=== PATIENT | female | born 1950 | race Caucasian/White ===

== ENCOUNTER 2018-08-25 12:08 | Emergency (ER) | payer MEDICARE ==
[~2018-08-25] VITALS: Ht 157.5 cm; Wt 95.5 kg
[~2018-08-25 12:08] MED LIST: ASPI81TA52 PO; ATOR40TA PO; CHOL100046 PO; DOCU100C40 PO; ESCI10TA54 PO; ESTR2TAB PO; LEVO75TA PO; MEDR2.5T7 PO; METH5TAB2 PO; OMEG1CAP2 PO; PARO10TA85 PO; PER10325T PO
[2018-08-25 12:10] VITALS: BP 146/73
[2018-08-25] MEDS ORDERED: HYDR-3965 PO (13:05)
== END 2018-08-25 14:04 | disposition home or self-care (01) ==
LOC: ER 12:08
DX: S52.591A Other fractures of lower end of right radius, initial encounter for closed fracture (principal); I25.2 Old myocardial infarction; M19.90 Unspecified osteoarthritis, unspecified site; I50.9 Heart failure, unspecified; Z88.5 Allergy status to narcotic agent; Z79.82 Long term (current) use of aspirin; Z79.899 Other long term (current) drug therapy; Z90.49 Acquired absence of other specified parts of digestive tract; W01.0XXA Fall on same level from slipping, tripping and stumbling without subsequent striking against object, initial encounter; Y93.89 Activity, other specified; Y92.89 Other specified places as the place of occurrence of the external cause; Y99.8 Other external cause status
CPT/HCPCS: 29125; 73090; 73110; 99284

== ENCOUNTER → 2018-09-26 | Outpatient (CLI) | payer MEDICARE ==
[~2018-09-26] MED LIST changes: +HYDR-4353 PO
== END | disposition home or self-care (01) ==
LOC: ORTHO 15:51
PROVIDERS: ATTEND Orthopaedic Surgery
DX: S52.571D Other intraarticular fracture of lower end of right radius, subsequent encounter for closed fracture with routine healing (principal)
CPT/HCPCS: 73110; G0463

== ENCOUNTER 2018-10-24 15:39 | Outpatient (CLI) | payer MEDICARE ==
[~2018-10-24 15:39] MED LIST changes: -HYDR-4353 PO
== END 2018-10-24 16:25 | disposition home or self-care (01) ==
LOC: ORTHO 15:39
PROVIDERS: ATTEND Orthopaedic Surgery
DX: S52.591D Other fractures of lower end of right radius, subsequent encounter for closed fracture with routine healing (principal); I10 Essential (primary) hypertension; Z87.891 Personal history of nicotine dependence; X58.XXXD Exposure to other specified factors, subsequent encounter
CPT/HCPCS: 73110; G0463

== ENCOUNTER 2018-12-05 16:41 | Outpatient (CLI) | payer MEDICARE | END 2018-12-05 16:50 | disposition home or self-care (01) | LOC: ORTHO 16:41 | PROVIDERS: ATTEND Orthopaedic Surgery | DX: S52.591D Other fractures of lower end of right radius, subsequent encounter for closed fracture with routine healing (principal); M19.031 Primary osteoarthritis, right wrist; I10 Essential (primary) hypertension; X58.XXXD Exposure to other specified factors, subsequent encounter | CPT/HCPCS: 73110; G0463 ==

== ENCOUNTER 2019-02-17 21:21 | Emergency (ER) | payer MEDICARE ==
[~2019-02-17] VITALS: Ht 154.9 cm; Wt 99.0 kg
[2019-02-17] MEDS ORDERED: LORazepam 0.5 MG tablet PO PRN (21:55)
[2019-02-17] MEDS ORDERED: TETanus/Pertussis (Acell)/Diphther VAC/PF (Tdap-Adult) 0.5ml syringe IMVAC ONE (21:55)
[2019-02-18 00:02] VITALS: BP 117/68
== END 2019-02-18 00:02 | disposition home or self-care (01) ==
LOC: ER 21:21
DX: S01.81XA Laceration without foreign body of other part of head, initial encounter (principal); I25.2 Old myocardial infarction; M79.7 Fibromyalgia; M19.90 Unspecified osteoarthritis, unspecified site; Z90.49 Acquired absence of other specified parts of digestive tract; Z88.5 Allergy status to narcotic agent; Z79.82 Long term (current) use of aspirin; Z79.899 Other long term (current) drug therapy; W01.0XXA Fall on same level from slipping, tripping and stumbling without subsequent striking against object, initial encounter; Y93.89 Activity, other specified; Y92.89 Other specified places as the place of occurrence of the external cause; Y99.8 Other external cause status
CPT/HCPCS: 12013; 70450; 90471; 90715; 99284

== ENCOUNTER 2019-08-29 04:27 | Emergency (ER) | payer MEDICARE ==
[~2019-08-29] VITALS: Ht 154.9 cm; Wt 98.2 kg
[~2019-08-29 04:27] MED LIST changes: -ESCI10TA54 PO; +ESCI10TA61 PO
[2019-08-29 04:51] LABS: BASOPHILS % (AUTO) 0.3 % (0-1); EOSINOPHILS # (AUTO) 0.3 X10'3 (0-0.9); EOSINOPHILS % (AUTO) 2.2 % (0-6); HEMATOCRIT 47.7 % (35.0-45.0); LYMPHOCYTES % (AUTO) 34.6 % (21-51); MEAN CORPUSCULAR HEMOGLOBIN 33.9 PG (27.0-31.0); MEAN CORPUSCULAR HGB CONC 33.6 g/dL (33.0-36.5); MEAN CORPUSCULAR VOLUME 100.9 FL (78-98); MEAN PLATELET VOLUME 9.4 FL (7.4-10.4); MONOCYTES # (AUTO) 0.7 X10'3 (0-0.9); MONOCYTES % (AUTO) 6.2 % (2-12); NEUTROPHILS # (AUTO) 6.5 X10'3 (1.8-7.7); NEUTROPHILS % (AUTO) 56.7 % (42-75); PLATELET COUNT 233 X10'3 (140-440); RED BLOOD COUNT 4.73 X10'6 (4.20-5.60); RED CELL DISTRIBUTION WIDTH 12.7 % (11.5-14.5); WHITE BLOOD COUNT 11.4 X10'3 (4.5-11.0)
--- NOTE | 2019-08-29 04:52 | NUR ---
dr. singh made aware pt's hr in the 150's. he is aware of what meds she takes home and her pain level 8/10 in her chest that radiates to her shoulders.
[2019-08-29] MEDS ORDERED: POTA10CA44 PO (05:04)
[2019-08-29] MEDS ORDERED: CARV6.253 PO (05:04)
[2019-08-29] MEDS ORDERED: HYDR-4353 PO (05:04)
[2019-08-29] MEDS ORDERED: GABA-530 PO (05:04)
[2019-08-29] MEDS ORDERED: DULO20CA50 PO (05:04)
[2019-08-29] MEDS ORDERED: FURO-150 PO (05:04)
[2019-08-29] MEDS ORDERED: LISI1TAB29 PO (05:04)
[2019-08-29] MEDS ORDERED: MULT-1173 PO (05:04)
[2019-08-29] MEDS ORDERED: MAGN400T39 PO (05:04)
[2019-08-29] MEDS ORDERED: CELE-193 PO (05:04)
[2019-08-29] MEDS ORDERED: DICL100G15 TOP (05:04)
[2019-08-29 05:07] LABS: ALANINE AMINOTRANSFERASE 20 U/L (12-78); ALBUMIN 3.4 G/DL (3.4-5.0); ALBUMIN/GLOBULIN RATIO 0.8 (1.1-1.5); ALKALINE PHOSPHATASE 86 IU/L (46-116); ANION GAP 7 (8-16); ASPARTATE AMINO TRANSFERASE 21 U/L (10-37); BILIRUBIN,TOTAL 0.4 MG/DL (0.1-1.0); BLOOD UREA NITROGEN 20 MG/DL (7-18); BUN/CREATININE RATIO 19.8 (6.6-38.0); CALCIUM 9.5 MG/DL (8.5-10.1); CHLORIDE 105 MMOL/L (99-107); CREATININE 1.01 MG/DL (0.40-0.90); GLUCOSE 119 MG/DL (70-104); MAGNESIUM 1.7 MG/DL (1.5-2.4); POTASSIUM 3.8 MMOL/L (3.5-5.1); SODIUM 144 MMOL/L (135-145); TOTAL CARBON DIOXIDE 31.9 MMOL/L (24-32); TOTAL PROTEIN 7.8 G/DL (6.4-8.2); eGFR 54 ML/MIN
[2019-08-29] MEDS ORDERED: carVEDilol 12.5mg tablet PO ONE (05:15)
[2019-08-29] MEDS ORDERED: magnesium oxide 400mg tablet PO ONE (05:15)
[2019-08-29] MEDS ORDERED: normal saline 1000ml 1,000 ML IV ONE (05:18)
[2019-08-29] MEDS ORDERED: amiodarone 150mg/dext, iso-os 100 ML IV ONE (05:20)
[2019-08-29] MEDS ORDERED: normal saline 1000ML IV soln IVB ONE (05:20)
[2019-08-29] MEDS ORDERED: amiodarone 50MG/ML inj IV ONE (05:20)
[2019-08-29 06:49] VITALS: BP 113/77
== END 2019-08-29 06:53 | disposition home or self-care (01) ==
LOC: ER 04:27
DX: I48.0 Paroxysmal atrial fibrillation (principal); R07.89 Other chest pain; I25.2 Old myocardial infarction; M19.90 Unspecified osteoarthritis, unspecified site; Z90.49 Acquired absence of other specified parts of digestive tract; Z95.1 Presence of aortocoronary bypass graft; Z98.51 Tubal ligation status; Z98.890 Other specified postprocedural states; Z88.5 Allergy status to narcotic agent; Z79.899 Other long term (current) drug therapy
CPT/HCPCS: 36415; 71045; 80053; 83735; 84484; 85025; 93005; 96365; 99285; J7030

== ENCOUNTER 2020-03-10 21:04 | Inpatient (IN) | payer MEDICARE ==
[~2020-03-10] VITALS: Ht 157.5 cm; Wt 97.3 kg
[~2020-03-10 21:04] MED LIST changes: -ASPI81TA52 PO; +CARV6.253 PO; +CELE-193 PO; +DICL100G15 TOP; -DOCU100C40 PO; +DULO20CA50 PO; -ESCI10TA61 PO; -ESTR2TAB PO; +FURO-150 PO; +GABA-530 PO; +HYDR-4353 PO; -LEVO75TA PO; +LISI1TAB29 PO; +MAGN400T39 PO; -MEDR2.5T7 PO; -METH5TAB2 PO; +MULT-1173 PO; -OMEG1CAP2 PO; -PARO10TA85 PO; -PER10325T PO; +POTA10CA44 PO
[2020-03-10] MEDS ORDERED: diltiazem 5mg/ml 5ml inj. IV ONE ×3 (21:15→23:20)
[2020-03-10] MEDS ORDERED: normal saline 1000ml 1,000 ML IV ONE (21:15)
[2020-03-10] MEDS ORDERED: magnesium 2GM in 50ml NS 50 ML IV ONE (21:25)
[2020-03-10 21:34] LABS: BASOPHILS % (AUTO) 0.1 % (0-1); EOSINOPHILS # (AUTO) 0.2 X10'3 (0-0.9); EOSINOPHILS % (AUTO) 1.3 % (0-6); HEMATOCRIT 45.9 % (35.0-45.0); HEMOGLOBIN 15.6 g/dl (12.0-16.0); LYMPHOCYTES # (AUTO) 3.4 X10'3 (1.1-4.8); LYMPHOCYTES % (AUTO) 23.8 % (21-51); MEAN CORPUSCULAR HEMOGLOBIN 33.8 PG (27.0-31.0); MEAN CORPUSCULAR VOLUME 99.5 FL (78-98); MEAN PLATELET VOLUME 8.9 FL (7.4-10.4); MONOCYTES # (AUTO) 1.2 X10'3 (0-0.9); MONOCYTES % (AUTO) 8.1 % (2-12); NEUTROPHILS # (AUTO) 9.6 X10'3 (1.8-7.7); NEUTROPHILS % (AUTO) 66.7 % (42-75); PLATELET COUNT 241 X10'3 (140-440); RED BLOOD COUNT 4.62 X10'6 (4.20-5.60); RED CELL DISTRIBUTION WIDTH 13.3 % (11.5-14.5); WHITE BLOOD COUNT 14.4 X10'3 (4.5-11.0)
[2020-03-10 21:51] LABS: ALANINE AMINOTRANSFERASE 43 U/L (12-78); ALBUMIN 3.4 G/DL (3.4-5.0); ALBUMIN/GLOBULIN RATIO 0.7 (1.1-1.5); ALKALINE PHOSPHATASE 108 IU/L (46-116); ANION GAP 9 (8-16); ASPARTATE AMINO TRANSFERASE 25 U/L (10-37); BILIRUBIN,TOTAL 0.4 MG/DL (0.1-1.0); BLOOD UREA NITROGEN 13 MG/DL (7-18); BUN/CREATININE RATIO 11.5 (6.6-38.0); CALCIUM 9.2 MG/DL (8.5-10.1); CHLORIDE 101 MMOL/L (99-107); CREATININE 1.13 MG/DL (0.40-0.90); GLUCOSE 120 MG/DL (70-104); POTASSIUM 3.3 MMOL/L (3.5-5.1); SODIUM 143 MMOL/L (135-145); TOTAL CARBON DIOXIDE 33.4 MMOL/L (24-32); TOTAL PROTEIN 8.3 G/DL (6.4-8.2); eGFR 48 ML/MIN
[2020-03-10] MEDS ORDERED: aspirin 325mg tablet PO ONE (22:05)
[2020-03-10 22:27] LABS: MAGNESIUM 1.6 MG/DL (1.5-2.4)
[2020-03-10] MEDS ORDERED: POTA-82 PO (22:39)
[2020-03-10] MEDS ORDERED: DULO-31 PO (22:39)
[2020-03-10] MEDS ORDERED: MAGN250T29 PO (22:39)
[2020-03-10] MEDS ORDERED: BACL10TA PO (22:39)
--- NOTE | 2020-03-10 22:49 | NUR ---
AWARE OF POSITIVE TROPONIN
[2020-03-10] MEDS ORDERED: potassium Cl 10 mEq/100mL bag IV ONE (23:10)
[2020-03-10] MEDS ORDERED: amiodarone 150mg/dext, iso-os 100 ML IV ONE (23:20)
[2020-03-10] MEDS ORDERED: potassium Cl 20 mEq SR tablet PO ONE (23:25)
[2020-03-11] VITALS (8 sets, daily range): BP systolic 113–162; BP diastolic 57–73
[2020-03-11] MEDS ORDERED: enoxaparin 100mg/ml syringe SUBCUT ONE (01:50)
[2020-03-11] MEDS ORDERED: nitroGLYCERIN 0.4mg SUBLingual tab SL PRN (02:25)
[2020-03-11] MEDS ORDERED: mag hydrox/Alum hydrox/simeth 30ml oral suspension PO PRN (02:25)
[2020-03-11] MEDS ORDERED: acetaminophen 325mg tablet PO PRN ×2 (02:25)
[2020-03-11] MEDS ORDERED: docusate sod 100mg capsule PO PRN (02:25)
[2020-03-11] MEDS ORDERED: ondansetron/PF 4mg/2ml inj IV PRN (02:25)
[2020-03-11] MEDS ORDERED: metoprolol tartrate 1mg/ml inj IV PRN (02:25)
[2020-03-11] MEDS ORDERED: regadenoson 0.4mg/5ml syringe IV PRN (02:25)
[2020-03-11] MEDS ORDERED: aminophylline 250mg/10ml inj. IV PRN (02:25)
[2020-03-11] MEDS ORDERED: heparin 10,000 units/1 ML INJ IV ONE (02:25)
[2020-03-11] MEDS ORDERED: magnesium 2GM in 50ml NS 50 ML IV PRN (02:25)
[2020-03-11] MEDS ORDERED: HYDROcodone/acetaminophen 10/325mg tab PO PRN ×2 (02:25)
[2020-03-11] MEDS ORDERED: HYDROcodone/acetaminophen 5mg/325mg tablet PO PRN (02:25)
[2020-03-11] MEDS ORDERED: potassium Cl 40MEQ/1/2NS 520ml 520 ML IV PRN ×2 (02:25)
[2020-03-11] MEDS ORDERED: magnesium 4gm in 100ml NS 100 ML IV PRN (02:25)
[2020-03-11] MEDS ORDERED: potassium Cl 20 mEq SR tablet PO PRN ×2 (02:25)
--- NOTE | 2020-03-11 03:07 | NUR ---
PATIENT PUT ON A HOSPITAL BED RESTING COMFORTABLY WILL CONTINUE TO MONITOR
[2020-03-11 04:01] LABS: BASOPHILS % (AUTO) 0.3 % (0-1); EOSINOPHILS # (AUTO) 0.2 X10'3 (0-0.9); EOSINOPHILS % (AUTO) 1.8 % (0-6); HEMATOCRIT 40.4 % (35.0-45.0); HEMOGLOBIN 13.5 g/dl (12.0-16.0); LYMPHOCYTES % (AUTO) 27.3 % (21-51); MEAN CORPUSCULAR HEMOGLOBIN 33.3 PG (27.0-31.0); MEAN CORPUSCULAR HGB CONC 33.3 g/dL (33.0-36.5); MEAN PLATELET VOLUME 9.1 FL (7.4-10.4); MONOCYTES % (AUTO) 9.2 % (2-12); NEUTROPHILS # (AUTO) 6.8 X10'3 (1.8-7.7); NEUTROPHILS % (AUTO) 61.4 % (42-75); PLATELET COUNT 195 X10'3 (140-440); RED BLOOD COUNT 4.04 X10'6 (4.20-5.60); RED CELL DISTRIBUTION WIDTH 13.4 % (11.5-14.5)
[2020-03-11 04:13] LABS: PARTIAL THROMBOPLASTIN TIME 29 SECONDS (22-32)
[2020-03-11] MEDS ORDERED: HYDROchlorothiazide 25mg tablet PO SCH (08:00)
[2020-03-11] MEDS ORDERED: heparin 10,000 units/1 ML INJ IV PRN (08:00)
[2020-03-11] MEDS ORDERED: K and/or MAG REPLACEMENT MC SCH (08:00)
[2020-03-11] MEDS ORDERED: gabapentin 100mg capsule PO SCH (08:00)
[2020-03-11] MEDS ORDERED: carVEDilol 12.5mg tablet PO SCH (08:00)
[2020-03-11] MEDS ORDERED: baclofen 10mg tablet PO SCH (08:00)
[2020-03-11] MEDS ORDERED: celeCOXIB 100mg capsule PO SCH (08:00)
[2020-03-11] MEDS ORDERED: duloxetine 30mg CAPSULE.DR PO SCH (08:00)
[2020-03-11] MEDS ORDERED: magnesium oxide 400mg tablet PO SCH (08:00)
[2020-03-11] MEDS ORDERED: heparin 25,000 UNIT/250ml bag 250 ML IV SCH (08:00)
[2020-03-11] MEDS ORDERED: multivitamins, therapeutics tablet PO SCH (08:00)
[2020-03-11] MEDS ORDERED: lisinopril 20mg tablet PO SCH (08:00)
[2020-03-11] MEDS ORDERED: furosemide 20MG tablet PO SCH (08:00)
--- NOTE | 2020-03-11 10:14 | NUR ---
Dr. Iniguez left bedside. Discussed risks and benefits of angiogram vs lexiscan. Dr. Iniguez would like to proceed with a stress test. Patient given informed consent.
--- NOTE | 2020-03-11 12:43 | NUR ---
notified. PAGER ID: [phone] MESSAGE: Re: Carmita Dinh. [id number]. Pt. reports that she is claustrophobic. Wondering if we can do a one time Ativan dose for Stress test? thanks. Deepika Bolton [id number].
[2020-03-11] MEDS ORDERED: CARV-50 PO (15:10)
[2020-03-11] MEDS ORDERED: APIX5TAB3 PO (15:46)
[2020-03-11] MEDS ORDERED: apixaban 5mg tablet PO ONE (15:50)
--- NOTE | 2020-03-11 16:20 | NUR ---
Patient stable for discharge per md orders. Strict return precautions and education about Elaquis given. IV discontinued with cannula intact. Tele monitor and heparin drip discontinued. Patient belongings gathered. Armbands cut at time of discharge. patient escorted to lobby in wheelchair with assistance of family medicine resident. Patient;'s significant other awaiting in private vehicle. Private vehicle seen being driven off premises
[2020-03-11] MEDS ORDERED: atorvastatin 20mg tablet PO SCH (21:00)
--- NOTE | 2020-03-12 14:50 | NUR ---
CASE MANAGEMENT DISCHARGE FOLLOW UP: Spoke with pt's , Yahir via telephone. He states that pt is currently out running errands, including picking up prescriptions. He states that is doing fine today with no CP, diaphoresis, SOB, and that she is "back to normal." Upon inquiry, Yahir is not sure when his will be back, will attempt to contact pt via cell phone. [id number] Left message on pt's cell phone for call back.
== END 2020-03-11 16:55 | disposition home or self-care (01) | DRG 282 ==
LOC: ER 21:05 → ED HOLD 03-11 02:23 → PCU 3S 03-11 10:44
PROVIDERS: ADMIT Family Medicine; ATTEND Internal Medicine
DX: I48.0 Paroxysmal atrial fibrillation (principal); I21.A1 Myocardial infarction type 2; E87.6 Hypokalemia; Z88.8 Allergy status to other drugs, medicaments and biological substances; Z80.3 Family history of malignant neoplasm of breast; Z82.49 Family history of ischemic heart disease and other diseases of the circulatory system; Z95.1 Presence of aortocoronary bypass graft; Z95.3 Presence of xenogenic heart valve; Z96.651 Presence of right artificial knee joint; I25.10 Atherosclerotic heart disease of native coronary artery without angina pectoris; I11.0 Hypertensive heart disease with heart failure; I50.9 Heart failure, unspecified; M19.90 Unspecified osteoarthritis, unspecified site; M79.7 Fibromyalgia; N28.9 Disorder of kidney and ureter, unspecified; E78.5 Hyperlipidemia, unspecified; I35.0 Nonrheumatic aortic (valve) stenosis; J44.9 Chronic obstructive pulmonary disease, unspecified; G47.33 Obstructive sleep apnea (adult) (pediatric); F41.9 Anxiety disorder, unspecified; F32.9 Major depressive disorder, single episode, unspecified; Z90.49 Acquired absence of other specified parts of digestive tract; Z98.51 Tubal ligation status; Z79.01 Long term (current) use of anticoagulants; I27.20 Pulmonary hypertension, unspecified; R68.84 Jaw pain; E66.01 Morbid (severe) obesity due to excess calories; Z68.39 Body mass index [BMI] 39.0-39.9, adult; Z79.899 Other long term (current) drug therapy; I83.90 Asymptomatic varicose veins of unspecified lower extremity; I07.1 Rheumatic tricuspid insufficiency
CPT/HCPCS: 36415; 71045; 78452; 80053; 83735; 83880; 84484; 85025; 85610; 85730; 87081; 93005; 93017; 93306; 93308; 96365; 99285; A9500; G0378; J1644; J1650; J2785; J3475; J3480; J3490; J7030

== ENCOUNTER 2021-12-04 00:33 | Emergency (ER) | payer MEDICARE ==
[~2021-12-04] VITALS: Ht 154.9 cm; Wt 95.4 kg
[~2021-12-04 00:33] MED LIST changes: +APIX5TAB3 PO; +BACL10TA PO; +CARV-50 PO; -CARV6.253 PO; -CHOL100046 PO; -DICL100G15 TOP; +DULO-31 PO; -DULO20CA50 PO; -LISI1TAB29 PO; +LISI1TAB53 PO; +MAGN250T29 PO; -MAGN400T39 PO; +POTA-82 PO; -POTA10CA44 PO
[2021-12-04] MEDS ORDERED: diltiazem 5mg/ml 5ml inj. IV ONE (01:10)
[2021-12-04] MEDS ORDERED: normal saline 1000ml 1,000 ML IV ONE (01:10)
[2021-12-04 01:27] LABS: ALANINE AMINOTRANSFERASE 27 U/L (12-78); ALBUMIN 3.2 G/DL (3.4-5.0); ALBUMIN/GLOBULIN RATIO 0.7 (1.1-1.5); ALKALINE PHOSPHATASE 91 IU/L (46-116); ANION GAP 7 (8-16); ASPARTATE AMINO TRANSFERASE 25 U/L (10-37); BILIRUBIN,TOTAL 0.2 MG/DL (0.1-1.0); BLOOD UREA NITROGEN 19 MG/DL (7-18); BUN/CREATININE RATIO 13.9 (6.6-38.0); CHLORIDE 101 MMOL/L (99-107); CREATININE 1.37 MG/DL (0.40-0.90); GLUCOSE 112 MG/DL (70-104); POTASSIUM 3.6 MMOL/L (3.5-5.1); SODIUM 143 MMOL/L (135-145); TOTAL CARBON DIOXIDE 34.7 MMOL/L (24-32); TOTAL PROTEIN 7.9 G/DL (6.4-8.2); eGFR 38 ML/MIN
[2021-12-04 01:46] LABS: BASOPHILS % (AUTO) 0.2 % (0-1); EOSINOPHILS # (AUTO) 0.3 X10'3 (0-0.9); EOSINOPHILS % (AUTO) 2.9 % (0-6); HEMATOCRIT 39.3 % (35.0-45.0); HEMOGLOBIN 13.5 g/dl (12.0-16.0); LYMPHOCYTES # (AUTO) 3.4 X10'3 (1.1-4.8); LYMPHOCYTES % (AUTO) 35.9 % (21-51); MEAN CORPUSCULAR HEMOGLOBIN 34.9 PG (27.0-31.0); MEAN CORPUSCULAR HGB CONC 34.3 g/dL (33.0-36.5); MEAN CORPUSCULAR VOLUME 101.5 FL (78-98); MEAN PLATELET VOLUME 9.4 FL (7.4-10.4); MONOCYTES # (AUTO) 0.7 X10'3 (0-0.9); NEUTROPHILS # (AUTO) 5.1 X10'3 (1.8-7.7); PLATELET COUNT 211 X10'3 (140-440); RED BLOOD COUNT 3.87 X10'6 (4.20-5.60); RED CELL DISTRIBUTION WIDTH 13.8 % (11.5-14.5); WHITE BLOOD COUNT 9.4 X10'3 (4.5-11.0)
[2021-12-04 02:20] VITALS: BP 100/56
== END 2021-12-04 03:00 | disposition home or self-care (01) ==
LOC: ER 00:34
DX: I48.20 Chronic atrial fibrillation, unspecified (principal); I11.0 Hypertensive heart disease with heart failure; I50.9 Heart failure, unspecified; M19.90 Unspecified osteoarthritis, unspecified site; Z88.5 Allergy status to narcotic agent; Z90.49 Acquired absence of other specified parts of digestive tract; Z98.51 Tubal ligation status
CPT/HCPCS: 36415; 71045; 80053; 83880; 84484; 85025; 93005; 96374; 99285; J3490; J7030

== ENCOUNTER 2023-10-30 18:03 | Emergency (ER) | payer MEDICARE ==
[~2023-10-30] VITALS: Ht 157.5 cm; Wt 93.0 kg
[~2023-10-30 18:03] MED LIST changes: +POTA-366 PO; -POTA-82 PO
[2023-10-30 18:07] VITALS: TEMP 98.3
[2023-10-30 19:50] LABS: HEMOGLOBIN 12.2 g/dl (12.0-16.0); WHITE BLOOD COUNT 7.8 X10'3 (4.5-11.0)
[2023-10-30 19:55] LABS: BASOPHILS % (AUTO) 0.3 % (0-1); EOSINOPHILS # (AUTO) 0.2 X10'3 (0-0.9); EOSINOPHILS % (AUTO) 2.8 % (0-6); HEMATOCRIT 36.5 % (35.0-45.0); LYMPHOCYTES # (AUTO) 2.1 X10'3 (1.1-4.8); LYMPHOCYTES % (AUTO) 26.5 % (21-51); MEAN CORPUSCULAR HEMOGLOBIN 33.5 PG (27.0-31.0); MEAN CORPUSCULAR HGB CONC 33.5 g/dL (33.0-36.5); MEAN CORPUSCULAR VOLUME 100.1 FL (78-98); MEAN PLATELET VOLUME 8.7 FL (7.4-10.4); MONOCYTES # (AUTO) 0.6 X10'3 (0-0.9); MONOCYTES % (AUTO) 8.2 % (2-12); NEUTROPHILS # (AUTO) 4.9 X10'3 (1.8-7.7); NEUTROPHILS % (AUTO) 62.2 % (42-75); PLATELET COUNT 206 X10'3 (140-440); RED BLOOD COUNT 3.65 X10'6 (4.20-5.60); RED CELL DISTRIBUTION WIDTH 13.6 % (11.5-14.5)
[2023-10-30 19:59] LABS: APTT 32 SECONDS (22-32); INR 1.4 INR; PROTHROMBIN TIME 14.6 SECONDS (9.0-12.0)
[2023-10-30 20:05] LABS: ALANINE AMINOTRANSFERASE 20 U/L (12-78); ALBUMIN 2.9 G/DL (3.4-5.0); ALBUMIN/GLOBULIN RATIO 0.6 (1.1-1.5); ALKALINE PHOSPHATASE 98 IU/L (46-116); ANION GAP 5 (8-16); ASPARTATE AMINO TRANSFERASE 23 U/L (10-37); BILIRUBIN,TOTAL 0.4 MG/DL (0.1-1.0); BLOOD UREA NITROGEN 15 MG/DL (7-18); BUN/CREATININE RATIO 12.8 (10.0-20.0); CHLORIDE 99 MMOL/L (99-107); CREATININE 1.17 MG/DL (0.40-0.90); GLUCOSE 104 MG/DL (70-104); POTASSIUM 3.2 MMOL/L (3.5-5.1); SODIUM 138 MMOL/L (135-145); TOTAL CARBON DIOXIDE 33.7 MMOL/L (24-32); TOTAL PROTEIN 7.5 G/DL (6.4-8.2); eCRCL 33 ML/MIN; eGFR 45 ML/MIN
[2023-10-30 20:21] VITALS: BP 136/81; PULSE 86; RESP 17; O2SAT 98
== END 2023-10-30 20:40 | disposition home or self-care (01) ==
LOC: ER 18:04
DX: S00.03XA Contusion of scalp, initial encounter (principal); I48.91 Unspecified atrial fibrillation; I25.10 Atherosclerotic heart disease of native coronary artery without angina pectoris; I11.0 Hypertensive heart disease with heart failure; I50.9 Heart failure, unspecified; I25.2 Old myocardial infarction; M19.90 Unspecified osteoarthritis, unspecified site; M79.7 Fibromyalgia; Z90.49 Acquired absence of other specified parts of digestive tract; Z98.51 Tubal ligation status; Z95.1 Presence of aortocoronary bypass graft; Z79.899 Other long term (current) drug therapy; Z88.8 Allergy status to other drugs, medicaments and biological substances; W18.39XA Other fall on same level, initial encounter; Y93.89 Activity, other specified; Y92.89 Other specified places as the place of occurrence of the external cause; Y99.8 Other external cause status
CPT/HCPCS: 36415; 70450; 80053; 85025; 85610; 85730; 99284

== ENCOUNTER 2023-12-08 12:34 | Emergency (ER) | payer MEDICARE ==
[~2023-12-08] VITALS: Ht 157.5 cm; Wt 90.9 kg
[2023-12-08 13:50] LABS: BASOPHILS % (AUTO) 0.2 % (0-1); EOSINOPHILS # (AUTO) 0.1 X10'3 (0-0.9); EOSINOPHILS % (AUTO) 1.6 % (0-6); HEMATOCRIT 37.1 % (35.0-45.0); HEMOGLOBIN 12.4 g/dl (12.0-16.0); LYMPHOCYTES # (AUTO) 1.8 X10'3 (1.1-4.8); MEAN CORPUSCULAR HEMOGLOBIN 33.4 PG (27.0-31.0); MEAN CORPUSCULAR HGB CONC 33.4 g/dL (33.0-36.5); MEAN CORPUSCULAR VOLUME 100.2 FL (78-98); MEAN PLATELET VOLUME 8.8 FL (7.4-10.4); MONOCYTES # (AUTO) 0.5 X10'3 (0-0.9); MONOCYTES % (AUTO) 5.8 % (2-12); NEUTROPHILS # (AUTO) 6.4 X10'3 (1.8-7.7); NEUTROPHILS % (AUTO) 72.4 % (42-75); PLATELET COUNT 211 X10'3 (140-440); WHITE BLOOD COUNT 8.9 X10'3 (4.5-11.0)
[2023-12-08 14:05] LABS: ALBUMIN 2.9 G/DL (3.4-5.0); ANION GAP 9 (8-16); BLOOD UREA NITROGEN 36 MG/DL (7-18); BUN/CREATININE RATIO 20.2 (10.0-20.0); CALCIUM 8.8 MG/DL (8.5-10.1); CHLORIDE 97 MMOL/L (99-107); CREATININE 1.78 MG/DL (0.40-0.90); GLUCOSE 126 MG/DL (70-104); POTASSIUM 3.4 MMOL/L (3.5-5.1); SODIUM 138 MMOL/L (135-145); TOTAL CARBON DIOXIDE 32.2 MMOL/L (24-32); eCRCL 22 ML/MIN; eGFR 28 ML/MIN
[2023-12-08 14:12] LABS: APTT 40 SECONDS (22-32); INR 2.8 INR; PROTHROMBIN TIME 26.8 SECONDS (9.0-12.0)
[2023-12-08 14:17] LABS: BILIRUBIN,URINE NEGATIVE (Neg); CLARITY,URINE SLIGHTLY CLOUDY (Clear); COLOR,URINE YELLOW (Yellow); GLUCOSE, URINE NEGATIVE (Neg); KETONES,URINE NEGATIVE (Neg); LEUKOCYTE ESTERASE ,URINE NEGATIVE (Neg); NITRITES, URINE NEGATIVE (Neg); OCCULT BLOOD,URINE TRACE-INTACT (Neg); PH,URINE 6.5 (4.8-8.0); PROTEIN,URINE NEGATIVE (Neg); UROBILINOGEN,URINE 0.2 E.U/dL (0.2-1.0)
[2023-12-08 14:24] LABS: UA COLLECTION TYPE CLN CATCH MIDSTREAM
[2023-12-08 14:26] LABS: BACTERIA,URINE FEW /HPF (Neg); RBC,URINE 0-2 /HPF (0-2); SQUAMOUS EPITHELIAL CELL,UR FEW /LPF (FEW); WBC,URINE 0-4 /HPF (0-4)
[2023-12-08] MEDS: normal saline 1000ML IV soln IVB ONE (14:46)
[2023-12-08 15:58] VITALS: BP 136/72; PULSE 86; RESP 18; TEMP 98.1; O2SAT 98
== END 2023-12-08 16:02 | disposition home or self-care (01) ==
LOC: ER 12:35
DX: S06.0X0A Concussion without loss of consciousness, initial encounter (principal); E86.0 Dehydration; R10.9 Unspecified abdominal pain; R11.2 Nausea with vomiting, unspecified; R51.9 Headache, unspecified; M54.2 Cervicalgia; I48.91 Unspecified atrial fibrillation; I25.10 Atherosclerotic heart disease of native coronary artery without angina pectoris; I11.0 Hypertensive heart disease with heart failure; I50.9 Heart failure, unspecified; Z88.5 Allergy status to narcotic agent; Z79.899 Other long term (current) drug therapy; Z79.2 Long term (current) use of antibiotics; Z90.49 Acquired absence of other specified parts of digestive tract; Z98.51 Tubal ligation status; W19.XXXA Unspecified fall, initial encounter; Y93.89 Activity, other specified; Y92.89 Other specified places as the place of occurrence of the external cause; Y99.8 Other external cause status
CPT/HCPCS: 36415; 70450; 71045; 72125; 80048; 81001; 82948; 85025; 85610; 85730; 93005; 96360; 99285; J7030

== ENCOUNTER 2024-02-20 14:10 | Emergency (ER) | payer MEDICARE ==
[~2024-02-20] VITALS: Ht 157.5 cm; Wt 90.9 kg
[2024-02-20 14:34] LABS: BASOPHILS % (AUTO) 0.4 % (0-1); EOSINOPHILS # (AUTO) 0.2 X10'3 (0-0.9); EOSINOPHILS % (AUTO) 1.9 % (0-6); HEMATOCRIT 44.9 % (35.0-45.0); LYMPHOCYTES # (AUTO) 2.6 X10'3 (1.1-4.8); LYMPHOCYTES % (AUTO) 27.5 % (21-51); MEAN CORPUSCULAR HEMOGLOBIN 33.6 PG (27.0-31.0); MEAN CORPUSCULAR HGB CONC 33.3 g/dL (33.0-36.5); MEAN CORPUSCULAR VOLUME 100.7 FL (78-98); MEAN PLATELET VOLUME 9.9 FL (7.4-10.4); MONOCYTES # (AUTO) 0.6 X10'3 (0-0.9); NEUTROPHILS # (AUTO) 6.1 X10'3 (1.8-7.7); NEUTROPHILS % (AUTO) 64.2 % (42-75); PLATELET COUNT 226 X10'3 (140-440); RED BLOOD COUNT 4.45 X10'6 (4.20-5.60); RED CELL DISTRIBUTION WIDTH 14.2 % (11.5-14.5); WHITE BLOOD COUNT 9.5 X10'3 (4.5-11.0)
[2024-02-20] MEDS: diltiazem 5mg/ml 5ml inj. IV ONE (14:43)
[2024-02-20 14:48] LABS: APTT 35 SECONDS (22-32); INR 2.3 INR; PROTHROMBIN TIME 22.8 SECONDS (9.0-12.0)
[2024-02-20 15:23] LABS: ALANINE AMINOTRANSFERASE 12 U/L (12-78); ALBUMIN 3.4 G/DL (3.4-5.0); ALBUMIN/GLOBULIN RATIO 0.7 (1.1-1.5); ALKALINE PHOSPHATASE 115 IU/L (46-116); ANION GAP 8 (8-16); ASPARTATE AMINO TRANSFERASE 16 U/L (10-37); BILIRUBIN,TOTAL 0.3 MG/DL (0.1-1.0); BLOOD UREA NITROGEN 16 MG/DL (7-18); CALCIUM 8.9 MG/DL (8.5-10.1); CHLORIDE 106 MMOL/L (99-107); CREATININE 0.89 MG/DL (0.40-0.90); GLUCOSE 126 MG/DL (70-104); POTASSIUM 3.9 MMOL/L (3.5-5.1); SODIUM 145 MMOL/L (135-145); TOTAL CARBON DIOXIDE 31.5 MMOL/L (24-32); TOTAL PROTEIN 8.5 G/DL (6.4-8.2); eCRCL 44 ML/MIN; eGFR 62 ML/MIN
[2024-02-20 15:29] LABS: PRO BRAIN NATRIURETIC PEPTIDE 3354 PG/ML (0-125)
[2024-02-20] MEDS ORDERED: MAGN64TA8 PO (17:17)
[2024-02-20 17:35] VITALS: BP 131/94; PULSE 83; RESP 16; TEMP 98; O2SAT 98
== END 2024-02-20 17:36 | disposition home or self-care (01) ==
LOC: ER 14:11
DX: I48.20 Chronic atrial fibrillation, unspecified (principal); I25.10 Atherosclerotic heart disease of native coronary artery without angina pectoris; I25.2 Old myocardial infarction; I11.0 Hypertensive heart disease with heart failure; I50.9 Heart failure, unspecified; M19.90 Unspecified osteoarthritis, unspecified site; M79.7 Fibromyalgia; Z95.1 Presence of aortocoronary bypass graft; Z90.49 Acquired absence of other specified parts of digestive tract; Z98.51 Tubal ligation status; Z88.5 Allergy status to narcotic agent; Z79.899 Other long term (current) drug therapy
CPT/HCPCS: 36415; 71045; 80053; 83880; 84484; 85025; 85610; 85730; 93005; 96374; 99285; J3490; J7030